=== PATIENT | male | born 1995 | race Caucasian/White ===

== ENCOUNTER 2020-07-05 14:53 | Emergency (ER) | payer MEDICAID ==
[~2020-07-05] VITALS: Ht 188 cm; Wt 90.9 kg
[2020-07-05 15:09] VITALS: BP 138/77
[2020-07-05 15:49] LABS: COVID AG,FIA SOURCE NASOPHARYNGEAL
== END 2020-07-05 16:34 | disposition home or self-care (01) ==
LOC: EMS 14:55
DX: B34.9 Viral infection, unspecified (principal); Z20.828 Contact with and (suspected) exposure to other viral communicable diseases
CPT/HCPCS: 87426; 99283; U0003

== ENCOUNTER 2020-07-26 14:02 | Emergency (ER) | payer MEDICAID ==
[~2020-07-26] VITALS: Ht 180.3 cm; Wt 102.3 kg
[2020-07-26 14:05] VITALS: BP 130/72
== END 2020-07-26 15:59 | disposition home or self-care (01) ==
LOC: EMS 14:02
DX: L29.9 Pruritus, unspecified (principal); F17.210 Nicotine dependence, cigarettes, uncomplicated
CPT/HCPCS: Z7502

== ENCOUNTER 2020-08-16 17:03 | Emergency (ER) | payer MEDICAID ==
[~2020-08-16] VITALS: Ht 188 cm; Wt 113.6 kg
[2020-08-16 17:07] VITALS: BP 118/80
== END 2020-08-16 18:04 | disposition home or self-care (01) ==
LOC: EMS 17:03
DX: R21 Rash and other nonspecific skin eruption (principal); F17.210 Nicotine dependence, cigarettes, uncomplicated
CPT/HCPCS: Z7502

== ENCOUNTER 2020-12-21 12:54 | Emergency (ER) | payer MEDICAID ==
[~2020-12-21] VITALS: Ht 185.4 cm; Wt 100.0 kg
[2020-12-21 12:55] VITALS: BP 122/78
== END 2020-12-21 14:34 | disposition home or self-care (01) ==
LOC: EMS 12:56
DX: B86 Scabies (principal); L29.9 Pruritus, unspecified; F17.210 Nicotine dependence, cigarettes, uncomplicated
CPT/HCPCS: 99282; Z7502